=== PATIENT | male | born 1975 | race Caucasian/White ===

== ENCOUNTER → 2018-03-01 00:53 | Outpatient (CLI) | payer OTHER, SELFPAY ==
[2018-03-01 11:29] LABS: Hemoglobin A1C 5.9 % (4.5-6.2)
[2018-03-01 11:32] LABS: Anion Gap 9.3 mmol/L (3-11); BUN 16 mg/dL (7-18); CO2 26.7 mmol/L (21.0-32.0); CREATININE 1.14 mg/dL (0.70-1.30); Calcium 9.5 mg/dL (8.5-10.1); Chloride 99 mmol/L (98-107); Glucose 102 mg/dL (70-100); Potassium 4.6 mmol/L (3.5-5.1); Sodium 135 mmol/L (136-145)
== END ==
PROVIDERS: PCP Family Medicine; Visit Provider Family Medicine
DX: E11.9 Type 2 diabetes mellitus without complications (principal); I10 Essential (primary) hypertension
CPT/HCPCS: 36415; 80048; 83036

== ENCOUNTER → 2018-03-08 09:10 | Outpatient (CLI) | payer OTHER, SELFPAY ==
[2018-03-08 11:33] LABS: Cholesterol 216 mg/dL (50-200); HDL Cholesterol 47 mg/dL (40-60); LDL CHOLESTEROL 125 mg/dL (<100); Triglyceride 250 mg/dL (30-150)
== END ==
PROVIDERS: PCP Family Medicine; Visit Provider Family Medicine
DX: E11.9 Type 2 diabetes mellitus without complications (principal)
CPT/HCPCS: 36415; 80061; 83721; 82043; 82570

== ENCOUNTER 2018-09-06 09:39 | Outpatient (CLI) | payer OTHER, SELFPAY ==
[2018-09-06 11:41] LABS: Hemoglobin A1C 5.9 % (4.5-6.2)
== END 2018-09-06 09:59 ==
PROVIDERS: PCP Family Medicine; Visit Provider Family Medicine
DX: E11.9 Type 2 diabetes mellitus without complications (principal)
CPT/HCPCS: 36415; 83036

== ENCOUNTER 2019-04-10 14:52 | Emergency (ER) | payer OTHER, SELFPAY ==
[2019-04-10] VITALS (34 sets, daily range): BP systolic 123–143; BP diastolic 67–98; PULSE 81–113; RESP 14–30; TEMP 36.7–37; O2SAT 92–100
[2019-04-10] MEDS: Ondansetron 4 MG/2 ML VIAL (15:00)
--- NOTE | 2019-04-10 15:03 | DI.CT_ITS ---
SYMPTOMS/DIAGNOSIS: SEIZURE CRANIAL CT: A noncontrast cranial CT was performed. The ventricular system is normal in appearance. There is no evidence of an intracranial mass lesion. There is no evidence of a subdural or epidural hematoma. No focal areas of decreased attenuation are seen. CONCLUSION: Normal noncontrast cranial CT.
[2019-04-10 15:08] LABS: Abs Immature Grans 0.05 k/cumm (0.0-0.09); HCT 48.9 % (40.0-50.0); HGB 16.6 g/dL (13.5-17.5); Mean Corp. HGB Concentration 33.9 g/dL (32.0-36.0); Mean Corpuscular Hemoglobin 28.9 pg (27.0-33.0); Mean Platelet Volume 10.1 fL (8.0-11.0); Platelet Count 326 x1000/uL (130-400); RBC 5.75 m/cumm (4.50-6.00); RBC Distribution Width 13.2 % (11.8-14.1); White Blood Cell Count 11.91 k/cumm (4.4-10.8)
--- NOTE | 2019-04-10 15:08 | W.ED.GENAD ---
Discharge Plan Disposition Patient Disposition: HOME Condition: Stable Discharge Details Chief Complaint: Seizure Clinical Impression: Seizure Primary Care Provider: Donavan Landaverde ED Provider: Shayne Tucker Home Meds and New Rx's Prescriptions: Continued (DME) FreeStyle Precision Mustapha Strips 1 EACH strip 1 ea Miscellaneous BID Qty: 100 RF: 5 (DME) lancets [FreeStyle Lancets] 1 EACH misc 1 ea Miscellaneous BID Qty: 100 RF: 5 Discharge Instructions Instructions: Recurrent Seizures in Adults (ED) Additional Instructions: I have placed you on our list to try and get set up with a neurologist follow up with your primary care provider in 1-[address] or swim/bathe alone for 6 months or until cleared by neurology if you have multiple seizures, progloned seizure, fevers or feel more ill return to the emergency department Medical Decision Making 43 yo male with prior history of seizures years ago, not on meds currently per pt, who come sin after he had what sounds like a tonic clonic seizure prior to arrival witnessed by his son. Was post ictal on ems arrival and on arrival here is drowsy though does know his name, time and where he is. He denies having any pain, fevers, chills, chest pain or sob and felt well prior to the seizure. Denies alcohol use for 3 years and no drug use per pt. HE does seem more drowsy than I would expect 20 minutes after a seizures and I had a question of his pupils being somewhat constricted bilaterally so I did give 0.4mg narcan IV without changes. Given first seizure in years will obtain lab work and imaging of his head pt's labs show anion gap acidosis likely from the seizure and head and chest imaging unremarkable. HE is now awake and oriented x4 without complaints other than tongue pain where he bit his tongue. He has no focal neuro deficits. States last seizure was in 2006. Denies alcohl or drug use. Will hydrate and recheck anion gap with metabolic panel pt remains stable and anion gap has normalized after IVF. He feels better and is stable for d/c. Given the seizure and history of seizure sin the past feel he would benefit from outpatient neurology consult, I have placed him on our follow up list to help get him seen as soon as possible. In the mean time I advised f/u with pcp and no driving or swimming/bathing alone. Return precautions given Differential Diagnosis Differential Diagnosis: seizure, electrolyte abnrmoality, tbi, ich, drug disorder Medical Records Medical records reviewed: Yes I reviewed the patient's medical records. Imaging Data Radiologic Study: Attestation: I personally reviewed and interpreted this imaging study as follows: Imaging: CT Scan Radiologist's impression: no acute findings Radiologic Study #2: Attestation: I personally reviewed and interpreted this imaging study as follows: Imaging: X-Ray Radiologist's impression: CONCLUSION: Elevation of the diaphragm, reportedly chronic. No additional findings. If clinically indicated, additional evaluation with chest CT could be considered. Lab Data Lab results reviewed: Yes I reviewed the patient's lab results. ECG Data Attestation: I personally reviewed and interpreted this ECG (s) as follows: Prior ECG tracings: not available for review Interpretation: sinus rhythm, rate of 111, pr 120, qtc 476, no acute st twave ischemic changes HPI General Mode of arrival: EMS. Date/Time Provider Initiated Documentation: 04/10/19 15:03. Limitations to Documentation: no limitations. Information obtained by: patient. History of Present Illness 43 year old M presents to the emergency department with the chief complaint of seizure, described as moderate, and it has been now resolved. No relieving factors improve symptom(s), No exacerbating factors reported . Patient notes nausea/vomiting. Patient did receive the following treatments prior to arrival, none Related Data Home Medications Medication Instructions Recorded Confirmed FreeStyle Precision Mustapha Strips #100 strip 12/27/16 09/06/18 lancets [FreeStyle Lancets] #100 ea 12/27/16 09/06/18 Allergies Allergy/AdvReac Type Severity Reaction Status Date / Time No Known Allergies Allergy Unverified 03/08/18 08:47 General Stated Complaint: Seizure CASSI: 2 Review of Systems Review of Systems ROS Unobtainable: All systems reviewed & are unremarkable except as noted in HPI and below Constitutional Constitutional: Denies chills, Denies fever(s) and Denies weakness ENT Ears, Nose, Mouth, and Throat: Denies change in voice Cardiovascular Cardiovascular: Denies chest pain and Denies dyspnea Respiratory Respiratory: Denies cough and Denies dyspnea Gastrointestinal Gastrointestinal: Denies abdominal pain Integumentary/Breasts Skin/Breast: Denies rash Neurologic Neurologic: Denies weakness COUNT INCLUDES THE [facility] Medical History (Updated 09/06/18 @ 08:18 by Donavan Landaverde MD) Alcohol abuse (Chronic) Abstinent since november 2015 Esophageal reflux (Chronic) Essential hypertension (Chronic 08/29/16) Tobacco use disorder (Chronic) Type 2 diabetes mellitus without complication, without long-term current use of insulin (Chronic 12/26/16) Surgical History (Updated 05/15/18 @ 14:33 by Survature DC) Vasectomy Family History (Updated 09/09/18 @ 08:04 by Abbi Ortez) Mother Hypertension Father Alcohol abuse Depression Hypertension Sister Asthma Brother Alcohol abuse Hypertension Son No problems noted. Daughter No problems noted. Daughter Asthma Social History (Updated 09/09/18 @ 08:03 by Abbi Ortez) Smoking/Tobacco Use Status: Former Tobacco Use Alcohol Intake: former Substance use type: unknown Caregiver/Support person: No Household members: spouse and children Housing: house Pets and animals: Yes Pets and animals: cat(s) and dog(s) Sexually active: No Do you think of yourself as: straight/heterosexual Current gender identity: female Frequency: does not exercise Hailey/Restoration: No preference Special hailey needs: No Do you feel safe at home: Yes Do you feel safe in your relationship?: Yes Exam Const General: no acute distress Orientation: alert HENMT Head: normal to inspection Ears: external ears normal General nose exam: external nose normal Mouth: moist mucous membranes Eyes General: appearance normal, both eyes and all related structures Neck Neck: normal visual inspection Resp Effort & Inspection: normal respiratory effort Cardio Rate: regular rate Skin General skin exam: no rashes or lesions noted Neuro General: alert and oriented x3 Extrem General: normal to inspection Psych Mental Status: mental status grossly normal Course Vital Signs Vital signs: Vital Signs Temperature 36.7 C 04/10/19 14:54 Pulse 110 H 04/10/19 14:54 Respiratory Rate 04/10/19 14:54 Blood Pressure 135/92 H 04/10/19 14:54 Pulse Oximetry 92 L 04/10/19 14:54 Temperature 36.7 C 04/10/19 14:54 Temperature Source Oral 04/10/19 14:54 Pulse 110 H 04/10/19 14:54 Respiratory Rate 20 04/10/19 14:54 Respiratory Effort Non-Labored 04/10/19 14:59 Respiratory Depth Deep 04/10/19 15:03 Respiratory Pattern Irregular 04/10/19 15:03 Blood Pressure 135/92 H 04/10/19 14:54 Blood Pressure Position Supine 04/10/19 14:54 Pulse Oximetry 92 L 04/10/19 14:54 Oxygen Delivery Method Room Air 04/10/19 14:54 Oxygen Flow Rate 0 04/10/19 14:54 Pain Level 0 04/10/19 14:54
[2019-04-10] MEDS: Normal Saline 1,000 ML 1000 ML IV ×3 (15:10→16:25)
--- NOTE | 2019-04-10 15:16 | DI.RAD_ITS ---
SYMPTOMS/DIAGNOSIS: HYPOXIA PA AND LATERAL CHEST: There is marked elevation of the diaphragm on the left. This was reportedly present on radiographs and CT of October 2006. The lungs appear grossly clear. Cardiac size indeterminate. No pleural effusions seen. CONCLUSION: Elevation of the diaphragm, reportedly chronic. No additional findings. If clinically indicated, additional evaluation with chest CT could be considered.
[2019-04-10 15:29] LABS: Absolute Monocyte Count 0.24 k/cumm (0.11-0.7); Absolute Neutrophil Count 6.67 k/cumm (1.2-6.7); Atypical Lymphocytes % 4; Diff Comment Manual Differential; RBC Morphology Normal
[2019-04-10] MEDS: Naloxone 0.4 MG/ML VIAL IVP (15:38)
[2019-04-10 15:42] LABS: ALT 51 U/L (16-63); AST 28 U/L (15-37); Albumin 4.4 g/dL (3.4-5.0); Alkaline Phosphatase 80 U/L (46-116); Anion Gap 23.8 mmol/L (3-11); BUN 15 mg/dL (7-18); CO2 14.2 mmol/L (21.0-32.0); CREATININE 1.52 mg/dL (0.70-1.30); Chloride 100 mmol/L (98-107); Estimated GFR 50.07 (mL/min/1.73m2); Glucose 122 mg/dL (70-100); Lipase 245 U/L (73-393); Magnesium 2.5 mg/dL (1.8-2.4); NT-proBNP 16 pg/mL; Potassium 3.5 mmol/L (3.5-5.1); Sodium 138 mmol/L (136-145); Total Protein 8.4 g/dL (6.4-8.2)
[2019-04-10 15:45] LABS: PTT Activated 22.5 sec (21.0-31.4)
[2019-04-10 15:53] LABS: ETHANOL BLOOD < 3.0 mg/dL (<3)
[2019-04-10 16:48] LABS: Bilirubin Negative (Negative); Blood Small (Negative); Clarity Clear (Clear); Glucose Negative (Negative); Ketones Negative (Negative); Leukocyte Esterase Negative (Negative); Nitrite Negative (Negative); Specific Gravity 1.025 (1.005-1.025); Urobilinogen 0.2 EU/dL (Up TO 0.2)
[2019-04-10 16:55] LABS: Bacteria Rare HPF (Negative); C & S Indicated? No; Casts Negative LPF (Negative); Crystals Negative HPF (Negative); Epithelial Cells Negative HPF (Negative); Mucus Negative (Negative); Other Cells Negative (Negative); WBC Negative HPF (0-5)
[2019-04-10 17:08] LABS: *AMPHETAMINES SCREEN URINE Negative (Negative); *BARBITURATES SCREEN URINE Negative (Negative); *BENZODIAZEPINES SCREEN URINE Negative (Negative); Cannabinoids THC Negative (Negative); Cocaine Screen,Urine Negative (Negative); METHADONE URINE SCREEN Negative (Negative); OPIATES URINE SCREEN Negative (Negative); Tricyclic Antidepressants Negative (Negative)
[2019-04-10 17:35] LABS: Anion Gap 8.2 mmol/L (3-11); BUN 14 mg/dL (7-18); CO2 23.8 mmol/L (21.0-32.0); CREATININE 1.26 mg/dL (0.70-1.30); Calcium 7.3 mg/dL (8.5-10.1); Chloride 107 mmol/L (98-107); Glucose 142 mg/dL (70-100); Potassium 3.5 mmol/L (3.5-5.1); Sodium 139 mmol/L (136-145)
== END 2019-04-10 18:13 | disposition home or self-care (01) ==
PROVIDERS: Emergency Provider Emergency Medicine; PCP Family Medicine
DX: G40.909 Epilepsy, unspecified, not intractable, without status epilepticus (principal); E87.2 Acidosis; I10 Essential (primary) hypertension; E11.9 Type 2 diabetes mellitus without complications
CPT/HCPCS: 36415; 80048; 80053; 80307; 83690; 93005; 96361; 96374; 96375; 99285; 70450; 71046; 80320; 81003; 81015; 83735; 83880; 85025; 85610; 85730; 93010; 99284; J2310; J2405; J3490

== ENCOUNTER 2019-04-15 07:00 | Outpatient (CLI) | payer OTHER, SELFPAY ==
[2019-04-15 16:13] LABS: Calculated LDL 100 mg/dL; Cholesterol 199 mg/dL (50-200); HDL Cholesterol 48 mg/dL (40-60); Triglyceride 255 mg/dL (30-150)
== END 2019-04-15 07:20 ==
PROVIDERS: PCP Family Medicine; Visit Provider Family Medicine
DX: R56.9 Unspecified convulsions (principal)
CPT/HCPCS: 36415; 80061

== ENCOUNTER 2019-04-23 15:04 | Outpatient (CLI) | payer OTHER, SELFPAY ==
--- NOTE | 2019-04-23 14:44 | DI.RAD_ITS ---
EXAM: XR SHOULDER RT COMPLETE 2+V INDICATION: SHOULDER PAIN. COMPARISON: No exams were available for comparison TECHNIQUE: 2D digital imaging was performed. FINDINGS: The bony structures are normally mineralized. Glenohumeral joint appears intact. There are moderatel y severe degenerative changes involving the AC joint.
== END 2019-04-23 15:24 ==
PROVIDERS: PCP Family Medicine; Visit Provider Student in an Organized Health Care Education/Training Program
DX: M25.511 Pain in right shoulder (principal); M19.011 Primary osteoarthritis, right shoulder
CPT/HCPCS: 73030

== ENCOUNTER 2019-04-30 06:55 | Outpatient (CLI) | payer OTHER, SELFPAY ==
--- NOTE | 2019-05-01 16:27 | PDOC.EEG ---
Neurology EEG EEG: [facility] Department of Neurology EEG REPORT Date of Recordin04/30/19 Interpreting Physician: Dr. Anni Hendrikcson PCP/Referring Provider: Dr. Donavan Ladnaverde Reason for study: Mr. Armas is a 43 year-old man with a recent seizure and episodic lightheaded spells. Current Medications: Home Medications Medication Instructions Recorded Confirmed Type FreeStyle Precision Mustapha Strips #100 strip 12/27/16 04/23/19 History lancets [FreeStyle Lancets] #100 ea 12/27/16 04/23/19 History phenytoin sodium extended 100 mg 100 mg PO BID #60 cap 04/15/19 04/23/19 Rx capsule METHODS: A 21 channel digitized electroencephalogram was performed in the [facility] Clinical Neurophysiology Laboratory. The 10/20 international system of electrode placement was used and bipolar and referential electrode montages were recorded. In addition to EEG the patient was monitored for EKG and lateral/vertical eye movements. Activation procedures of photic stimulation and hyperventilation were performed if applicable. Video was used during activation procedures and during events where applicable. The duration of the recording was 30 minutes. DESCRIPTION OF EEG: The patient was noted to be awake,drowsy, and asleep during the recording. During maximal wakefulness a 9-Hz posterior background rhythm was present which was well-modulated, symmetrical, reactive to eye opening, and of moderate voltage. With eye opening the background activity changed to a low voltage mixture of alpha, beta, and occasional theta range frequencies. Faster frequencies were present in the bilateral anterior head regions. There was a normal anterior-posterior voltage gradient. During drowsiness, there was attenuation of the posterior dominant background rhythm and vertex waves. Stage II sleep was present with symmetrical sleep spindles, K-complexes, and vertex waves. During sleep, the patient was noted to have disordered breathing by the radiation control technician. Activating Procedures: Photic stimulation was performed which produced a symmetrical posterior driving response at various flash frequencies. Hyperventilation was performed with moderate effort and produced mild physiological slowing of the background. EKG: EKG revealed normal sinus rhythm. INTERPRETATION: This EEG is normal during the awake and sleep states as well as during photic stimulation and hyperventilation. The patient was noted to have disordered breathing during sleep. PRIOR EEG: none CLINICAL CORRELATION: No focal regions of cerebral dysfunction or epileptiform activity was present. Disordered breathing during sleep was noted, concerning for an underlying sleep disorder. Epilepsy remains a clinical diagnosis and a normal EEG does not rule out epilepsy. Clinical correlation is advised. Of note, this routine EEG was performed in error and should have actually been an ambulatory EEG. No charges should be applied. Anni Hendrickson MD
== END 2019-04-30 07:15 ==
PROVIDERS: PCP Family Medicine; Visit Provider Psychiatry & Neurology Neurology
DX: R56.9 Unspecified convulsions (principal); R42 Dizziness and giddiness
CPT/HCPCS: 95819

== ENCOUNTER 2019-05-13 01:39 | Outpatient (CLI) | payer OTHER, SELFPAY ==
--- NOTE | 2019-05-13 10:30 | DI.MRI_ITS ---
EXAM: MR BRAIN WO CLINICAL HISTORY: seizure G40.909 EPILEPSY. TECHNIQUE: Multiplanar multisequence MRI was performed. COMPARISON: No exams were available for comparison FINDINGS: MR examination of the brain was performed according to the usual protocol with additional coronal T2 weighted scanning of the temporal lobes. Ventricular system is normal appearance. No signal abnorma lity identified in the brain. Diffusion-weighted imaging shows no evidence of infarction. Susceptib ility weighted imaging shows no evidence of hemorrhage. There is normal flow void in the [place] vasculature. The orbital and temporal bone structures appear intact. Coronal imaging of the temporal lobes shows no evidence of mesial temporal sclerosis. IMPRESSION: Negative MR of the brain.
== END 2019-05-13 01:59 ==
PROVIDERS: PCP Family Medicine; Visit Provider Psychiatry & Neurology Neurology
DX: G40.909 Epilepsy, unspecified, not intractable, without status epilepticus (principal)
CPT/HCPCS: 70551

== ENCOUNTER 2019-05-13 01:40 | Outpatient (CLI) | payer OTHER, SELFPAY ==
--- NOTE | 2019-05-13 10:55 | DI.MRI_ITS ---
EXAM: MR UPPER JOINT RT WO CLINICAL HISTORY: surgical evaluation M75.51 BURSITIS, M75.41 IMPINGEMENT SYNDROME,. TECHNIQUE: Multiplanar multisequence MRI was performed. FINDINGS: MR examination of the shoulder was performed according to the usual protocol. There are hypertrophic degenerative changes of the acromioclavicular joint. No other significant bony abnormality is seen. Glenoid labrum grossly intact as visualized. There is mild superior deformity of supraspinatus fro m the AC hypertrophy with minimal intra tendinous signal abnormality consistent with tendinosis. No evidence of supraspinatus tear or other rotator cuff tear. Biceps tendon is normally positioned and shows normal signal. . IMPRESSION: Mild AC impingement with supraspinatus tendinosis. No other significant abnormality seen
== END 2019-05-13 02:00 ==
PROVIDERS: PCP Family Medicine; Visit Provider Student in an Organized Health Care Education/Training Program
DX: M75.41 Impingement syndrome of right shoulder (principal); M75.51 Bursitis of right shoulder; M75.81 Other shoulder lesions, right shoulder
CPT/HCPCS: 73221

== ENCOUNTER 2019-05-16 02:21 | Outpatient (CLI) | payer OTHER, SELFPAY ==
--- NOTE | 2019-05-20 08:25 | PDOC.EEG_ITS ---
Neurology EEG EEG: [facility] Department of Neurology LONG-TERM AMBULATORY EEG REPORT Date of Recordin05/16/19 at 14:55:59 to 05/17/19 at 14:59:03 Interpreting Physician: Dr. Anni Hendrickson PCP/Referring Provider: Dr. Donavan Landaverde Reason for study: Mr. Armas is a 44 year-old man who suffered an apparent seizure on 04/10/19. Current Medications: Home Medications Medication Instructions Recorded Confirmed Type FreeStyle Precision Mustapha Strips #100 strip 12/27/16 05/20/19 History lancets [FreeStyle Lancets] #100 ea 12/27/16 05/20/19 History METHODS: An 18-channel digitized electroencephalogram was recorded in the ambulatory setting with video. The 10/20 international system of electrode placement was used and bipolar and referential electrode montages were recorded. In addition to EEG the patient was monitored for EKG and by video. Activation procedures of photic stimulation and hyperventilation were performed if applicable. The duration of the recording was ~24 hours. DESCRIPTION OF EEG: Waking background activity: During maximal wakefulness a 10-Hz posterior background rhythm was present which was well-modulated, symmetrical, reactive to eye opening, and of moderate voltage. Faster frequencies were present in the bilateral anterior head regions. There was a normal anterior-posterior voltage gradient. Drowsy and sleeping background activity: During drowsiness, there was attenuation of the posterior dominant background rhythm and vertex waves. Normal stage II and III sleep was present with symmetrical sleep spindles, K- complexes, and vertex waves with slowing of the background rhythm to delta/theta frequencies. REM sleep manifested by rapid lateral eye movements and faster background rhythms was recorded. Arousal was unremarkable. 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 Interictal abnormalities: none. Ictal findings: No events recorded. Activating Procedures: Photic stimulation and hyperventilation were not performed. EKG: EKG revealed normal sinus rhythm. INTERPRETATION: This long-term EEG is normal during the awake and sleep states. PRIOR EEG: -EEG (04/30/19): normal awake, asleep, PS, and HV; disordered breathing noted during sleep; CLINICAL CORRELATION: No focal regions of cerebral dysfunction or epileptiform activity was present. Epilepsy remains a clinical diagnosis and a normal EEG does not rule out epilepsy. Clinical correlation is advised. Anni Hendrickson MD
== END 2019-05-16 02:41 ==
PROVIDERS: PCP Family Medicine; Visit Provider Psychiatry & Neurology Neurology
DX: R56.9 Unspecified convulsions (principal); R41.89 Other symptoms and signs involving cognitive functions and awareness
CPT/HCPCS: 95953

== ENCOUNTER 2022-01-25 01:47 | Outpatient (CLI) | payer BC, SELFPAY ==
[2022-01-25 07:52] LABS: Hemoglobin A1C 5.7 % (<5.7)
[2022-01-25 08:15] LABS: COMMENT (LAB VIEW ONLY) 151.69 mg/dL; Microalb ug/mg Crea 3.7 ug/mg Cr
[2022-01-25 08:16] LABS: ALT 30 U/L (16-63); AST 17 U/L (15-37); Albumin 4.2 g/dL (3.4-5.0); Alkaline Phosphatase 59 U/L (46-116); Anion Gap 2.8 mmol/L (3-11); BUN 17 mg/dL (7-18); Bilirubin, Total 1.3 mg/dL (0.2-1.0); CO2 30.2 mmol/L (21.0-32.0); Calcium 8.8 mg/dL (8.5-10.1); Calculated LDL 112 mg/dL (<100); Chloride 103 mmol/L (98-107); Cholesterol 216 mg/dL (<200); Glucose 105 mg/dL (74-106); HDL Cholesterol 48 mg/dL (40-60); Potassium 4.1 mmol/L (3.5-5.1); Sodium 136 mmol/L (136-145); Total Protein 7.8 g/dL (6.4-8.2); Triglyceride 281 mg/dL (<150)
[2022-01-26 10:53] LABS: HIV-1/2 Ag & Ab Screen Negative (Negative)
[2022-01-26 10:59] LABS: Hepatitis C Ab w Rflx HCV PCR Negative (Negative)
== END 2022-01-25 01:48 | disposition home or self-care (01) ==
LOC: LBO 01:47
PROVIDERS: PCP Nurse Practitioner Family; Visit Provider Family Medicine
DX: I10 Essential (primary) hypertension (principal); E11.9 Type 2 diabetes mellitus without complications; Z11.59 Encounter for screening for other viral diseases; Z11.4 Encounter for screening for human immunodeficiency virus [HIV]
CPT/HCPCS: 36415; 80053; 80061; 86803; 87389; 82043; 82570; 83036

== ENCOUNTER 2023-01-12 02:29 | Outpatient (CLI) | payer BC, SELFPAY ==
[2023-01-12 09:10] LABS: Abs Immature Grans 0.01 10^3/uL (0.0-0.06); Absolute Basophil Count 0.07 10^3/uL (0.0-0.2); Absolute Eosinophil Count 0.07 10^3/uL (0.0-0.7); Absolute Lymphocyte Count 2.39 10^3/uL (1.2-3.4); Absolute Monocyte Count 0.61 10^3/uL (0.1-0.8); Absolute Neutrophil Count 3.44 10^3/uL (1.2-6.7); Basophils % 1.1; Eosinophils % 1.1; HCT 49.7 % (40.0-50.0); Immature Grans % 0.2; Lymphocytes % 36.3; MCH 29.1 pg (27.0-33.0); MCHC 34.2 % (32.0-36.0); MCV 85 fL (80-95); MPV 9.5 fL (8.0-11.0); Monocytes % 9.3; Platelet Count 243 10^3/uL (130-400); RBC 5.85 10^6/uL (4.36-5.78); RDW 13.1 % (11.8-14.1); RDW-SD 40.8 fL; WBC 6.59 10^3/uL (4.4-10.8)
[2023-01-12 09:44] LABS: Hemoglobin A1C 5.8 % (<5.7)
[2023-01-12 09:45] LABS: ALT 46 U/L (16-63); AST 20 U/L (15-37); Albumin 4.4 g/dL (3.4-5.0); Alkaline Phosphatase 55 U/L (46-116); Anion Gap 9.1 mmol/L (3-11); BUN 15 mg/dL (7-18); Bilirubin, Total 1.6 mg/dL (0.2-1.0); CO2 27.9 mmol/L (21.0-32.0); Calcium 9.4 mg/dL (8.5-10.1); Calculated LDL 120 mg/dL (<100); Chloride 101 mmol/L (98-107); Cholesterol 222 mg/dL (<200); Estimated GFR 92.84 (mL/min/1.73m2); Glucose 110 mg/dL (74-106); HDL Cholesterol 50 mg/dL (40-60); Potassium 4.2 mmol/L (3.5-5.1); Sodium 138 mmol/L (136-145); Total Protein 8.5 g/dL (6.4-8.2); Triglyceride 263 mg/dL (<150)
[2023-01-12 22:23] LABS: PSA, Screening 0.5 ng/mL (<=2.5)
[2023-01-17 14:35] LABS: Testosterone, Total 558 ng/dL (240-950)
== END 2023-01-12 02:30 | disposition home or self-care (01) ==
PROVIDERS: PCP Nurse Practitioner Family; Visit Provider Nurse Practitioner Family
DX: R53.83 Other fatigue (principal); E78.5 Hyperlipidemia, unspecified; R73.03 Prediabetes; G47.00 Insomnia, unspecified; Z12.5 Encounter for screening for malignant neoplasm of prostate
CPT/HCPCS: 36415; 80053; 80061; 84153; 84403; 83036; 84443; 85025

== ENCOUNTER 2024-01-09 07:29 | Outpatient (CLI) | payer BC, SELFPAY ==
[2024-01-09 12:24] LABS: Anion Gap 8.7 mmol/L (3-11); BUN 12 mg/dL (7-18); CO2 27.3 mmol/L (21.0-32.0); CREATININE 1.2 mg/dL (0.70-1.30); Calcium 9.2 mg/dL (8.5-10.1); Chloride 103 mmol/L (98-107); Estimated GFR 74.13 (mL/min/1.73m2); Glucose 112 mg/dL (74-106); Potassium 4.1 mmol/L (3.5-5.1); Sodium 139 mmol/L (136-145)
[2024-01-09 12:52] LABS: Hemoglobin A1C 5.8 % (<5.7)
[2024-01-10 10:39] LABS: HBs Antibody, Quant <3.1 mIU/mL (See Note); Hep B Surface Ab Negative (See Note); Hepatitis B Core Antibody Negative (Negative); Hepatitis B Surface Antigen Negative (Negative)
== END 2024-01-09 07:30 | disposition home or self-care (01) ==
LOC: LOS 07:29
PROVIDERS: PCP Nurse Practitioner Family; Referring Provider Nurse Practitioner Family; Visit Provider Nurse Practitioner Family
DX: Z00.00 Encounter for general adult medical examination without abnormal findings (principal); R73.03 Prediabetes; Z11.59 Encounter for screening for other viral diseases
CPT/HCPCS: 36415; 80048; 86704; 86706; 87340; 83036

== ENCOUNTER 2025-02-16 14:10 | Emergency (ER) | payer BC, SELFPAY ==
[2025-02-16 14:12] VITALS: BP 148/96; PULSE 87; RESP 16; TEMP 37; O2SAT 95
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
[2025-02-16] MEDS: Ibuprofen 600 MG TAB PO (15:04)
[2025-02-16] MEDS: Acetaminophen 500 MG TAB 1000 MG PO (15:04)
[2025-02-16] MEDS: Cephalexin 500 MG CAP PO (15:04)
[2025-02-16] MEDS: Diph,Pertuss(Acell),Tet Vac/Pf 0.5 ML SYR IM (15:05)
[2025-02-16] MEDS: Lidocaine/Epinephri/Tetracaine Topical Gel 3 ML TP (15:05)
[2025-02-16] MEDS: Lidocaine 2% Multi-Dose W/EPI 1/100,000 20 ML VIAL IJ (15:11)
[2025-02-16 16:21] VITALS: BP 132/82; PULSE 84; RESP 17; TEMP 36.8; O2SAT 99
== END 2025-02-16 16:22 | disposition home or self-care (01) ==
PROVIDERS: Emergency Provider Emergency Medicine; PCP Nurse Practitioner Family
DX: S01.81XA Laceration without foreign body of other part of head, initial encounter (principal); S01.512A Laceration without foreign body of oral cavity, initial encounter; E11.9 Type 2 diabetes mellitus without complications; E78.5 Hyperlipidemia, unspecified; Z87.891 Personal history of nicotine dependence; W20.8XXA Other cause of strike by thrown, projected or falling object, initial encounter; Y93.89 Activity, other specified; Y92.018 Other place in single-family (private) house as the place of occurrence of the external cause; Z23 Encounter for immunization
CPT/HCPCS: 12051; 90471; 90715; 99284; J2004

== ENCOUNTER 2025-02-24 04:56 | Outpatient (CLI) | payer BC, SELFPAY ==
[2025-02-24 12:38] LABS: Calculated LDL 117 mg/dL (<100); Cholesterol 213 mg/dL (<200); HDL Cholesterol 44 mg/dL (>or=40); Triglyceride 264 mg/dL (<150)
== END 2025-02-24 04:57 | disposition home or self-care (01) ==
PROVIDERS: PCP Nurse Practitioner Family; Visit Provider Nurse Practitioner Family
DX: Z13.220 Encounter for screening for lipoid disorders (principal)
CPT/HCPCS: 36415; 80061

== ENCOUNTER 2025-03-31 13:21 | Outpatient (CLI) | payer BC, SELFPAY ==
--- NOTE | 2025-03-31 13:45 | DI.RAD_ITS ---
Exam(s) XR MANDIBLE COMPLETE EXAM: XR MANDIBLE COMPLETE CLINICAL HISTORY: ? retained suture in chin,localized swelling, r22. TECHNIQUE: 2D digital imaging was performed. COMPARISON: No exams were available for comparison FINDINGS: BONES: No evidence of fracture. JOINTS: No evidence of temporomandibular joint dislocation or subluxation. SOFT TISSUES: Unremarkable. No radiopaque foreign bodies. IMPRESSION: Unremarkable radiographs of the mandible. DATA REPOSITORY: RADIATION DOSE DELIVERED:
== END 2025-03-31 13:41 ==
LOC: DI 13:21
PROVIDERS: PCP Nurse Practitioner Family; Visit Provider Nurse Practitioner Family
DX: R22.0 Localized swelling, mass and lump, head (principal)
CPT/HCPCS: 70110